=== PATIENT | male | born 1970 | race Caucasian/White ===

== ENCOUNTER 2018-06-27 08:31 | Inpatient (IN) | payer OTHER ==
[~2018-06-27] VITALS: Ht 188 cm; Wt 66.7 kg
--- NOTE | 2018-06-27 18:45 | NUR ---
Intake assessment- Pt presents for medical supervised withdrawal of ETOH. Pt alert and oriented x4, Pt denies being intoxicated. Pt speech clear. Pt is thin and pale. Unshaven and disheveled. Vitals 114/79, HR 109, resp 18, sat 97%, temp 98.2. Pt reports NKA. He has been drinking for 28 years. He drinks 99proof schnapps (99Apples) 600 ml daily for 7 years and 2160ml of beer daily for 7 years.
[2018-06-27] MEDS ORDERED: SRC ALCOHOL WITHDRAWAL ADMITTING PROTOCOL XX PRN (19:00)
[2018-06-27] MEDS ORDERED: diphenhydrAMINE 50 MG CAPSULE PO PRN (19:00)
[2018-06-27] MEDS ORDERED: DIAZEPAM 10 MG TABLET PO PRN (19:00)
[2018-06-27] MEDS ORDERED: MAG HYDROX/AL HYDROX/SIMETH 30 ML LIQUID UDC PO PRN (19:00)
[2018-06-27] MEDS ORDERED: LORAZEPAM 2 MG/1 ML VIAL IM PRN (19:00)
[2018-06-27] MEDS ORDERED: LOPERAMIDE HCL 2 MG CAPSULE PO PRN ×2 (19:00)
[2018-06-27] MEDS ORDERED: MIRALAX 17 GM POWD.PACK PO PRN (19:00)
[2018-06-27] MEDS ORDERED: ACETAMINOPHEN 325 MG TABLET PO PRN (19:00)
[2018-06-27] MEDS ORDERED: DIAZEPAM 5 MG TABLET PO PRN (19:00)
[2018-06-27] MEDS ORDERED: ONDANSETRON 4 MG/2 ML VIAL IM PRN (19:00)
[2018-06-27] MEDS ORDERED: MAGNESIUM HYDROXIDE 30 ML LIQUID UDC PO PRN (19:00)
--- NOTE | 2018-06-27 19:30 | NUR ---
Admission note Patient is a 47 year old male admitted on 06/27/18 at 1854, for medically supervised ETOH withdrawal. Pt is AOx4 and is ambulatory with steady gait. Pt is noted to be anxious, worried, flat affect and withdrawn. Pt denies being intoxicated. Pt reports his typical withdrawal symptoms consist of chills, sweats and tremors. Pt is currently presenting with nausea with no emesis present and anxiety. Pt's initial CIWA was 5. Pt has medical hx of HTN and catheterized polyps on Jun 2018. Pt did not bring any home meds; pt admits taking Advil pm for sleep, vitamin B12 and folic acid supplements daily. Patient has NKA and is full code. Pt follows a regular diet at home. Pt denies withdrawal induced delirium, seizure, cardiac complications, overdoses, and blackouts. Pt stated he smokes 5 cigarettes daily for 20 years, and he also smoke marijuana. Pt denies being in a 5150 in thats past. Pt also reports his mother was an alcoholic. Pt's support system is his kids and friends. Pt reports he is currently lives alone at home. Pt is employed at a [employer]. Pts highest level of education is a high school diploma. Pt stated his longest sobriety was 10 months 25 years ago. Pt denies being under the care of a psychiatrist at the moment. Pt states he does have a PCP but does not remember the name. Pt was hospitalized within the last 30 days, MRSA was collected. Substance abuse 1) ETOH: Pt reports drinking Vodka 600 ml and a 6 pack of beer 360ml (2160 ml) daily for 7 years. Pt last used on 06/27/18, vodka 200 ml and beer 360ml at 1100. Pt started drink when he was 16 years old. 2) Marijuana: Patient states he smokes 0.5 gram daily for the past 2 years. Pt last smoked 0.5 grams on 06/27/18 at 1100. Pt started smoking since he was 12 years old. When asked pt why he wants to get sober he stated: "I want to get sober because I can see its killing me." Patient stated he has faced legal consequences as a result of his drug use. When asked pt why is this admission going to be different he stated: "I plan in going to a treatment center." Pt is in treatment for the first time and denies attending any AA meeting. Pt does not have a sponsor. Pt did not bring any home meds. Pt stated he also continues to drink because he is afraid of the withdrawal symptoms and therefore he continues drinking, he added I know its a lame excuse. Pt also reported he has lost a lot of weight within the last two weeks, about 10 lbs. Pt is 60 and weights 147 lbs per standing scale. Pt's skin is intact, and warm to touch. Capillary refill is <3 seconds. PERRLA is present with pupils 3 mm bilaterally. Lungs are cleared to auscultate bilaterally. Abdomen is soft and non-distended and bowel sounds are present in all four quadrants. Pt' last bowel movement was 06/20/18. Initial vital signs: BP 114/79, P 109, RR 18, Temp 98.2, and O2 97% on RA. Patient denies any pain. Breathing is even and unlabored with no s/s of distress. Pt was provided with instructions regarding unit policies and rules. He provided urine at intake office and blood sample was taken at unit. Fall and seizure precautions are in place, side rails are padded. Safety measures in place, bed locked in low position, side rails up x2, and call light within reach. Will continue to monitor. Addendum: 06/28/18 at 0543 by AMARILIS LUDWIG RN Pt also reported he felt 2 weeks ago and hit himself on his left leg, visible bruise on left thigh and ankle with no open lesion. Photos were not taken.
[2018-06-27 19:52] LABS: *AMPHETAMINE, URINE NEGATIVE (NEGATIVE); *BARBITURATE, URINE NEGATIVE (NEGATIVE); *CANNABINOID, URINE POSITIVE (NEGATIVE); *COCCAINE, URINE NEGATIVE (NEGATIVE); *OPIATE, URINE NEGATIVE (NEGATIVE); *PHENCYCLIDINE SCREEN,URINE NEGATIVE (NEGATIVE)
[2018-06-27] MEDS: ONDANSETRON ODT 4 MG TAB.RAPDIS SL PRN (20:12)
--- NOTE | 2018-06-27 20:12 | NUR ---
PRN Zofran and Benadryl pt is presenting with nausea with no emesis present and difficulty falling asleep. Administered PRN Zofran SL and Benadryl. Pt tolerated well and will continue to monitor.
[2018-06-27 20:15] VITALS: BP 124/91
--- NOTE | 2018-06-27 20:42 | NUR ---
DAISY MIKE Pt stated that nausea had subside and no emesis was present, medication was noted to be effective. Will continue to monitor. Addendum: 06/28/18 at 0520 by AMARILIS LUDWIG RN Reassessment
[2018-06-27] MEDS ORDERED: THIAMINE HCL 200 MG/2 ML VIAL IM ONE (21:00)
--- NOTE | 2018-06-27 21:12 | NUR ---
PRN Benadryl Reassessment Pt was in bed resting with eyes closed, breathing even and unlabored. Medication noted to be effective and will continue to monitor.
[2018-06-27 21:51] LABS: BASOPHILS % (AUTO) 0.4 % (0.0-2.0); EOSINOPHILS % (AUTO) 0.7 % (0.0-7.0); HEMATOCRIT 37.7 % (36.7-47.1); HEMOGLOBIN 13.4 g/dL (12.5-16.3); LYMPHOCYTES # (AUTO) 0.7 K/uL (20.0-40.0); LYMPHOCYTES % (AUTO) 23.8 % (20.5-51.5); MEAN CORPUSCULAR HEMOGLOBIN 38.2 uug (23.8-33.4); MEAN CORPUSCULAR HGB CONC 36 g/dL (32.5-36.3); MEAN CORPUSCULAR VOLUME 107.6 fL (73.0-96.2); MONOCYTES # (AUTO) 0.3 K/uL (2.0-10.0); MONOCYTES % (AUTO) 11.4 % (0.0-11.0); NEUTROPHILS # (AUTO) 1.8 K/uL (1.8-8.9); NEUTROPHILS % (AUTO) 63.7 % (38.5-71.5); PLATELET COUNT (AUTO) 71 K/uL (152-348); WHITE BLOOD COUNT (AUTO) 2.8 K/uL (3.6-10.2)
[2018-06-27 22:04] LABS: BILIRUBIN,TOTAL 1.5 mg/dL (0.2-1.0); CREATININE 0.9 mg/dL (0.6-1.3); MAGNESIUM 1.7 mg/dL (1.8-2.4); POTASSIUM 3.3 mmol/L (3.5-5.1); TOTAL PROTEIN, SERUM 6.6 g/dL (6.4-8.2)
[2018-06-27 22:15] LABS: THYROID STIMULATING HORMONE 1.506 mIU/mL (0.358-3.740)
[2018-06-27 22:17] LABS: LYMPHOCYTES % (MANUAL) 29 % (20-40); MONOCYTES % (MANUAL) 10 % (2-10); NEUTROPHILS % (MANUAL) 61 % (42-75)
[2018-06-28] VITALS: BP 110/81
[2018-06-28] MEDS ORDERED: POTASSIUM CHLORIDE 20 MEQ TAB.PRT.SR PO ONE (00:20)
[2018-06-28] MEDS ORDERED: MAGNESIUM OXIDE 400 MG TABLET PO SCH (00:20)
--- NOTE | 2018-06-28 00:20 | NUR ---
Critical lab Value K 3.3 and Mg 1.7 Pt's K lab level is low of 3.3 and Mg is low of 1.7. Replacement was ordered and administered K-tg 40 MEQ and mag ox 400mg. Pt tolerated well and will continue to monitor pt. Safety measures in place.
[2018-06-28] MEDS: HYDROXYZINE PAMOATE 25 MG CAPSULE PO PRN (00:28)
[2018-06-28] MEDS: DIAZEPAM 10 MG TABLET PO PRN ×2 (00:28→08:16)
--- NOTE | 2018-06-28 00:28 | NUR ---
PRN Valium and Vistaril Pt was presenting with chills, anxiety, agitation and mild sweats. Administered PRN Valium and Vistaril, pt tolerated well and will continue to monitor. Addendum: 06/28/18 at 0523 by AMARILIS LUDWIG RN CATARINA was 11.
--- NOTE | 2018-06-28 01:28 | NUR ---
PRN Valium and Vistaril Reassessment Pt was noted in bed with eyes closed, with lights off. Pt is breathing even and unlabored, medication noted to be effective. Safety measure sin place and will continue to monitor.
--- NOTE | 2018-06-28 07:17 | NUR ---
End of shift note Pt was admitted on 06/27/18 for medically supervised ETOH withdrawal. Pt is on fall and seizure precautions. Pts last CIWA was 11. Pt is on PRNs, pending taper orders. Pt had PRN Zofran, Benadryl, Valium, and Vistaril during this shift. Pt had K and Mg replaced during this shift. MRSA swab was collected. Pt refused any medication for constipation at this moment. Pt was complaint with plan of care. Pt is presenting with anxiety, agitation, chills, sweats, and a runny nose. Pt slept for 7 hours and had a total of 1,000 ml. Pt voided x 3 and had no bowel movements during this shift. Safety measures in place, bed locked in low position, side rails up x2, and call light within reach. Will endorse to day shift.
[2018-06-28 08:00] VITALS: BP 121/79
--- NOTE | 2018-06-28 08:15 | NUR ---
START OF SHIFT: Received Pt A/O X 4. he presents with guarded affect and anxious mood. Tremors noted to BUE. He is fidgety. He reports restlessness,anxiety,intermittent sweats and R shoulder pain 6/10 on pain scale. PRN Valium 10 mg PO given for CIWA 15 and PRN Motrin given to manage pain. Encouraged increased fluids and rest today. Will continue to monitor and manage s/s of w/d. Call galicia in reach. Bed low and locked.
[2018-06-28] MEDS: MULTIVITAMINS,THERAPEUTIC TABLET PO SCH (08:16)
[2018-06-28] MEDS: IBUPROFEN 600 MG TABLET PO PRN (08:16)
[2018-06-28] MEDS: FOLIC ACID 1 MG TABLET PO SCH (08:16)
[2018-06-28] MEDS: THIAMINE HCL 100 MG TABLET PO SCH (08:16)
[2018-06-28] MEDS ORDERED: TUBERCULIN,PURIF.PROT.DERIV. 5 TU/0.1 ML TEST ID ONE (09:00)
--- NOTE | 2018-06-28 09:15 | NUR ---
Bertha VILLA effective aeb CIWA 12. Will continue to monitor Addendum: 06/28/18 at 1230 by AMISH MARSH RN Motrin effective R shoulder pain 08/16 on scale
[2018-06-28 12:00] VITALS: BP 119/91
[2018-06-28] MEDS ORDERED: 5 DAY TAPER VALIUM-SERENITY PROTOCOL PO PRN (13:00)
[2018-06-28] MEDS: DIAZEPAM 10 MG TABLET PO SCH ×3 (13:27→20:31)
[2018-06-28 16:00] VITALS: BP 117/90
--- NOTE | 2018-06-28 18:40 | NUR ---
END OF SHIFT: Pt started Valium taper today to manage s/s of w/d which include anxiety,tremors,sweats,restlessness and irritability. Last CIWA 12. He was given PRN Valium in the morning prior to taper starting ind it was effective. He was compliant with increased fluids and spent most of shift laying in bed as encouraged. Will pass shift report to oncoming night nurse.
--- NOTE | 2018-06-28 19:30 | NUR ---
START OF SHIFT Received patient awake, alert, oriented x4 sitting up in bed watching TV. Patient is a 47 year old male admitted for medically supervised withdrawal from ETOH with a secondary diagnosis of HTN. Per endorsement, patient presented with tremors, discomfort, anxiety, and restlessness during the shift and Valium PRN was given as well as scheduled taper meds. This is his first time in treatment and per AM nurse, he is compliant with care. Upon assessment, patient reports fatigue, nausea, tremors, and anxiety and requests PRNs with scheduled night meds. Last CIWA score is 12. Call light is functional and within reach. Bed is in a low position with wheels locked. All safety measures in place. Will continue to monitor.
[2018-06-28 20:05] VITALS: BP 145/91
[2018-06-28] MEDS: TRAZODONE 50 MG TABLET PO PRN (20:30)
[2018-06-28] MEDS: ONDANSETRON ODT 4 MG TAB.RAPDIS SL PRN (20:31)
--- NOTE | 2018-06-28 20:31 | NUR ---
PRN ZOFRAN AND TRAZODONE ADMINISTRATION Patient reported having nausea and difficulty sleeping. PRN meds Zofran 4 mg SL and Trazodone 50 mg PO given per MD orders and patient request. Will reassess for effectiveness.
--- NOTE | 2018-06-28 21:31 | NUR ---
PRN ZOFRAN AND TRAZODONE REASSESSMENT Patient is noted lying in bed with eyes closed and even, unlabored respirations. No reports of nausea noted at this time. PRN meds Zofran and Trazodone noted to be effective. Will continue to monitor.
--- NOTE | 2018-06-29 00:03 | NUR ---
VITAL SIGNS REFUSED Patient is noted lying in bed with eyes closed and even, unlabored respirations. Vital sign assessment refused. HOB flat and bilateral side rails raised. Call light within reach. Will continue to monitor.
--- NOTE | 2018-06-29 07:06 | NUR ---
END OF SHIFT Patient reported having difficulty sleeping, anxiety, and nausea during the shift. PRN meds zofran and Trazodone given and were effective. Patient remained compliant with therapeutic program. He slept for about 6 hours during the night. Last CIWA score was 13 taken at 1999. HOB and bilateral side rails raised. Fall and safety precautions maintained. Endorsed to oncoming AM nurse.
--- NOTE | 2018-06-29 07:50 | NUR ---
STAT OF SHIFT Received report from night nurse, 47 year male admitted for ETOH Withdrawal. Patient continues on 5 day Valium taper tolerating well. Per endorsement patient received PRN Zofran,Trazodone, slept for 6 hours, last CIWA-. Received patient alert awake oriented x4, patient presented with flat facial expression, anxious, agitated, bilateral hand tremors, numbness on bilateral lower extremities. Patient is due for schedule medications. Patient educated on current plan of the day and medications regime, patient verbalized understanding. All safety measures in place. Will cont to monitor.
[2018-06-29 08:00] VITALS: BP 120/90
[2018-06-29] MEDS: FOLIC ACID 1 MG TABLET PO SCH (08:24)
[2018-06-29] MEDS: THIAMINE HCL 100 MG TABLET PO SCH (08:24)
[2018-06-29] MEDS: DIAZEPAM 5 MG TABLET PO SCH ×4 (08:24→21:00)
[2018-06-29] MEDS: MULTIVITAMINS,THERAPEUTIC TABLET PO SCH (08:24)
[2018-06-29 09:27] LABS: BILIRUBIN,TOTAL 3.1 mg/dL (0.2-1.0); CREATININE 0.9 mg/dL (0.6-1.3); MAGNESIUM 1.6 mg/dL (1.8-2.4); POTASSIUM 4.2 mmol/L (3.5-5.1)
[2018-06-29 09:46] LABS: BASOPHILS % (AUTO) 0.7 % (0.0-2.0); EOSINOPHILS # (AUTO) 0.1 K/uL (0.0-0.7); EOSINOPHILS % (AUTO) 1.8 % (0.0-7.0); LYMPHOCYTES % (AUTO) 32.4 % (20.5-51.5); MEAN CORPUSCULAR HGB CONC 36 g/dL (32.5-36.3); MONOCYTES # (AUTO) 0.4 K/uL (2.0-10.0); MONOCYTES % (AUTO) 12.1 % (0.0-11.0); NEUTROPHILS # (AUTO) 1.7 K/uL (1.8-8.9); RED BLOOD CELL COUNT(AUTO) 3.58 MIL/uL (4.06-5.63); WHITE BLOOD COUNT (AUTO) 3.1 K/uL (3.6-10.2)
[2018-06-29 10:09] LABS: HEPATITIS B SURFACE AG Negative (Negative)
[2018-06-29 10:13] LABS: HEMATOCRIT 38.1 % (36.7-47.1); HEMOGLOBIN 13.8 g/dL (12.5-16.3)
[2018-06-29 10:14] LABS: MEAN CORPUSCULAR HEMOGLOBIN 38.6 uug (23.8-33.4); MEAN CORPUSCULAR VOLUME 106.5 fL (73.0-96.2); PLATELET COUNT (AUTO) 79 K/uL (152-348)
[2018-06-29] MEDS ORDERED: MAGNESIUM OXIDE 400 MG TABLET PO ONE (11:30)
[2018-06-29 12:00] VITALS: BP 130/91
[2018-06-29 12:22] LABS: BASOPHILS % (MANUAL) 1 % (0-2); EOSINOPHILS % (MANUAL) 1 % (0-8); LYMPHOCYTES % (MANUAL) 34 % (20-40); NEUTROPHILS % (MANUAL) 53 % (42-75)
[2018-06-29 12:31] LABS: MONOCYTES % (MANUAL) 9 % (2-10)
[2018-06-29 12:32] LABS: REACTIVE LYMPHOCYTES 2 % (0-0)
--- NOTE | 2018-06-29 12:41 | NUR ---
Therapist prompted client to attend group therapy.
[2018-06-29 16:00] VITALS: BP 122/93
[2018-06-29] MEDS ORDERED: DIAZEPAM 10 MG TABLET PO ONE (18:15)
--- NOTE | 2018-06-29 18:23 | NUR ---
ONE TIME VALIUM Patient reported increased in anxiety, agitation, restless, fatigue, bilateral hand tremors, sweats, CIWA score noted 15. notified. New order to give Valium 10mg PO, medication administered as ordered. All safety measures in place. Will cont to monitor and reassess for effectiveness. Addendum: 06/29/18 at 1842 by ANDREW CORADO LVN Patient's HR noted 129.
--- NOTE | 2018-06-29 19:07 | NUR ---
END OF SHIFT Patient is alert awake oriented x4 patient is a 47 year old male admitted for ETOH withdrawals and continues Valium taper tolerating well. Patient received did not receive any PRN. Patient was given his scheduled medications tolerated well. Patient encouraged to participate in therapy sessions. Patient educated in medication regimen. Encouraged patient to socialized with others. Patient verbalized understanding. Encourage PO fluids as tolerated. Last CIWA score 12 at 1600. Patient magnesium level was low 1.6L which was replaced it with 800mag- ox PO as ordered. Patient tolerated well. Vital signs WNL. Patient denies any SI/HI. Patient was given one time dose of Valium 10mg PO for increased anxiety, endorse to night nurse to reassess the patient. All safety measures in place. Patient endorsed to night nurse in stable condition.
--- NOTE | 2018-06-29 19:30 | NUR ---
START OF SHIFT Pt is a 47 y/o male admitted on 06/27/18 for medically supervised withdrawal from ETOH. Pt is on a 5 day Valium taper, tolerating well. Last CIWA 15 and no PRNs administered during day shift. Mg replaced. One time order for Valium 10 mg administered at 1823. Upon assessment pt presents with anxiety, agitation, restlessness, tremors, sweats, lethargy, chills, disheveled appearance, poor eye contact, and unkempt room. Pt also complains of occasional dizziness. Medications due. Safety measures in place. Call light within reach. Will continue to monitor.
[2018-06-29 20:00] VITALS: BP 120/94
--- NOTE | 2018-06-29 21:00 | NUR ---
NON ADMIN SCHEDULED VALIUM 5 MG Pt fell asleep through medication administration time. Pt stated before he slept, "I feel like I might be ok because I got that extra Valium 10 mg not too long ago...I feel less anxious and I feel tired." Education about risks/benefits given. Pt understood.
--- NOTE | 2018-06-30 | NUR ---
VITALS REFUSED Pt laying in bed with eyes closed, vitals refused before patient fell asleep and stated, "I don't want anyone knocking on my door or anything tonight." Respirations even and unlabored. Safety measures in place. Call light within reach. Will continue to monitor.
--- NOTE | 2018-06-30 04:00 | NUR ---
VITALS REFUSED Pt laying in bed with eyes closed, vitals refused. Respirations even and unlabored. Safety measures in place. Call light within reach. Will continue to monitor.
--- NOTE | 2018-06-30 07:13 | NUR ---
END OF SHIFT Pt is a 47 y/o male admitted on 06/27/18 for medically supervised withdrawal from ETOH. Pt is on a 5 day Valium taper, tolerating well. Pt presented with anxiety, agitation, restlessness, tremors, sweats, chills, disheveled appearance, poor eye contact, and unkempt room. Scheduled Valium 5 mg non-administered d/t pt sedation. No PRNs administered. Last CIWA 9. Pt slept 9 hours. Intake 595 ml, void x 2, stool x 1. Safety measures in place. Call light within reach. Pts needs have been met. Endorsed to day shift nurse.
--- NOTE | 2018-06-30 08:10 | NUR ---
START OF SHIFT: Received Pt A/O X 4. he presents with guarded affect and anxious mood. Fine tremors noted to hands. He is fidgety. He reports anxiety,restlessness,back pain 5/10 on scale and intermittent sweats. Valium taper in progress to manage s/s of w/d. CIWA 9 PRN Motrin given to manage pain. Encouraged increased fluids to facilitate detox process. Encouraged group attendance to improve coping skills and prevent relapse. Will continue to monitor and manage s/s of w/d.
[2018-06-30 08:11] VITALS: BP 134/99
[2018-06-30] MEDS: IBUPROFEN 600 MG TABLET PO PRN (08:48)
[2018-06-30] MEDS: MULTIVITAMINS,THERAPEUTIC TABLET PO SCH (08:48)
[2018-06-30] MEDS: THIAMINE HCL 100 MG TABLET PO SCH (08:48)
[2018-06-30] MEDS: DIAZEPAM 5 MG TABLET PO SCH ×3 (08:48→20:50)
[2018-06-30] MEDS: FOLIC ACID 1 MG TABLET PO SCH (08:48)
[2018-06-30 09:07] LABS: CREATININE 0.8 mg/dL (0.6-1.3); MAGNESIUM 1.9 mg/dL (1.8-2.4); POTASSIUM 4.1 mmol/L (3.5-5.1)
[2018-06-30 12:00] VITALS: BP 147/107
--- NOTE | 2018-06-30 13:17 | NUR ---
Therapist prompted client to attend all group therapy sessions.
[2018-06-30] MEDS: CLONIDINE HCL 0.1 MG TABLET PO PRN (13:20)
--- NOTE | 2018-06-30 13:20 | NUR ---
PRN Clonidine 0.1 mg PO given for BP 147/107 P 90. He is asymptomatic. Will monitor effectiveness of PRN medication.
[2018-06-30 14:00] VITALS: BP 116/88
[2018-06-30 16:00] VITALS: BP 111/83
--- NOTE | 2018-06-30 18:56 | NUR ---
END OF SHIFT: Pt continues on Valium taper today to manage s/s of w/d which include anxiety,fine tremors and restlessness.. Last CIWA 9. He was compliant with increased fluids and attended groups. UA collected and sent to lab. for reported blood in urine Will pass shift report [facility]. Addendum: 06/30/18 at 1940 by AMISH MARSH RN ERROR: UA not collected and sent to lab as urine amount was too small
--- NOTE | 2018-06-30 19:35 | NUR ---
START OF SHIFT NOTE Rcvd report from outgoing nurse. Pt is a 47 y/o male A/O to person, place, time, and purpose. Pt was admitted for medically supervised withdrawal from ETOH. Pt is on day 3 of a 5 day Valium taper. Pt has been presenting w/ nausea w/ no emesis, sweats, body aches, restlessness, fine tremors, anxiety, depressed mood, and flat affect. Pt rcvd PRN Motrin and was noted effective by outgoing nurse. Last CIWA 9 @ 1600. Call light is within reach. Pt will continue to be monitored and needs met.
[2018-06-30 20:00] VITALS: BP 111/85
[2018-06-30] MEDS: ONDANSETRON ODT 4 MG TAB.RAPDIS SL PRN (20:50)
--- NOTE | 2018-06-30 20:50 | NUR ---
PRN TRAZODONE AND ZOFRAN ADMINISTRATION Trazodone 50mg for agitation/sleep and Zofran 4mg for nausea were given. Will reassess pt in 1hr.
[2018-06-30] MEDS: TRAZODONE 50 MG TABLET PO PRN (20:51)
--- NOTE | 2018-06-30 21:50 | NUR ---
PRN TRAZODONE AND ZOFRAN REASSESSMENT Pt is in bed w/ his eyes closed. Pt's respirations are unlabored and even.
[2018-06-30 21:54] LABS: *BILIRUBIN,URIN 1+ (NEGATIVE); *BLOOD, URINE NEGATIVE (NEGATIVE); *CLARITY,URINE CLEAR (CLEAR); *COLOR,URINE DARK YELLOW (YELLOW); *KETONES,URINE 1+ (NEGATIVE); LEUKOCYTE ESTERASE ,URINE NEGATIVE (NEGATIVE); NITRITE, URINE NEGATIVE (NEGATIVE); UGLUCOSE NEGATIVE (NEGATIVE)
[2018-06-30 22:11] LABS: BACTERIA,URINE NONE SEEN /HPF (NONE SEEN); RBC,URINE 0-3 /HPF (0-3); SQUAMOUS EPITHELIAL CELL,UR FEW /HPF (NONE SEEN); WBC,URINE 0-3 /HPF (0-3)
--- NOTE | 2018-07-01 | NUR ---
CIWA DEFERRED. V/S REFUSED Pt is in bed w/ his eyes closed. Pt's respirations are unlabored and even.
--- NOTE | 2018-07-01 04:00 | NUR ---
CIWA DEFERRED. V/S REFUSED Pt is in bed w/ his eyes closed. Pt's respirations are unlabored and even.
--- NOTE | 2018-07-01 07:24 | NUR ---
END OF SHIFT NOTE Endorsed pt to oncoming nurse. Pt is a 47 y/o male A/O to person, place, time, and purpose. Pt was admitted for medically supervised withdrawal from ETOH. Pt completed day 3 of a 5 day Valium taper. Pt continued presenting w/ nausea w/ no emesis, sweats, body aches, restlessness, fine tremors, anxiety, depressed mood, and flat affect. Pt denies any S/I or H/I. PRN Trazodone and Zofran were given and noted effective. Pt denies any S/I or H/I. PRN Zofran and Trazodone were given and noted effective. Pts fluid intake was 1000ml and he slept for 7hrs. Last CIWA 9 @ 2200. Call light is within reach.
--- NOTE | 2018-07-01 07:30 | NUR ---
START OF SHIFT Pt 47 y/o male admitted for etoh withdrawal. Pt received in room awake watching television. Pt alert and oriented to name, place, and time. Perrla. Skin warm and moist touch. Respirations even and unlabored. Appears disheveled. Empty food wrappings scattered throughout the room. Encouraged to maintain hygiene. Anxious and restless. Pressured speech. Bilateral hand tremors noted. Fidgety. Foot tapping. It was reported that pt slept for 7 hours last night. Pt is on a 5 day valium taper and is on day 4. Bed on lowest position with side rails x2 up for safety. Call light within reach.
[2018-07-01 08:00] VITALS: BP 129/80
[2018-07-01 08:18] LABS: BILIRUBIN,TOTAL 1.2 mg/dL (0.2-1.0); CREATININE 0.9 mg/dL (0.6-1.3); POTASSIUM 4.1 mmol/L (3.5-5.1)
[2018-07-01 08:19] LABS: MAGNESIUM 1.9 mg/dL (1.8-2.4); TOTAL PROTEIN, SERUM 7.4 g/dL (6.4-8.2)
[2018-07-01] MEDS: MULTIVITAMINS,THERAPEUTIC TABLET PO SCH (08:39)
[2018-07-01] MEDS: FOLIC ACID 1 MG TABLET PO SCH (08:39)
[2018-07-01] MEDS: DIAZEPAM 5 MG TABLET PO SCH ×2 (08:39→20:27)
[2018-07-01] MEDS: THIAMINE HCL 100 MG TABLET PO SCH (08:39)
[2018-07-01 12:00] VITALS: BP 136/98
--- NOTE | 2018-07-01 13:38 | NUR ---
Therapist prompted client to attend group therapy sessions daily.
[2018-07-01] MEDS: HYDROXYZINE PAMOATE 25 MG CAPSULE PO PRN (15:20)
--- NOTE | 2018-07-01 15:24 | NUR ---
PRN VISTARIL Pt anxious and restless. Vistaril po prn per MD order given.
[2018-07-01 16:00] VITALS: BP 136/102
--- NOTE | 2018-07-01 16:24 | NUR ---
PRN VISTARIL EVAL Pt states medication not effective.
[2018-07-01] MEDS: CLONIDINE HCL 0.1 MG TABLET PO PRN (16:41)
--- NOTE | 2018-07-01 16:42 | NUR ---
PRN CATAPRES Anxious and restless. me=264/102. Catapres po prn per MD order given.
--- NOTE | 2018-07-01 17:42 | NUR ---
PRN CATAPRES EVAL Pt states medications effective. bp= 128/88
--- NOTE | 2018-07-01 19:08 | NUR ---
END OF SHIFT Pt 47 y/o male admitted for etoh withdrawal. Pt alert and oriented to name, place, and time. Perrla. Skin warm and moist to touch. Respirations even and unlabored. Appears disheveled and unkempt. Dirt under finger nails of both hands noted. Clothes scattered throughout the room. Encouraged to maintain hygiene. Anxious and restless. Pressured speech. Bilateral hand tremors noted. Complaints of generalized discomfort. Last ciwa= 11@ 1600. Pt attended group activity. Pt is on a 5 day valium taper and is on day 4. Bed on lowest position with side rails x2 up for safety. Call light within reach.
--- NOTE | 2018-07-01 19:30 | NUR ---
START OF SHIFT Pt is a 47 y/o male admitted on 06/27/17 for ETOH withdrawal. Pt is on a 5 day Valium taper that started on 06/28/18, tolerating well. Last CIWA 11 and PRN Clonidine and Vistaril administered during day shift. Upon assessment pt presents with anxiety, agitation, restlessness, tremors, sweats, numbness in feet, difficulty falling and staying asleep, and unkempt room. Medications due. Safety measures in place. Call light within reach. Will continue to monitor.
[2018-07-01 20:00] VITALS: BP 118/86
[2018-07-01] MEDS: TRAZODONE 50 MG TABLET PO PRN (20:27)
--- NOTE | 2018-07-01 20:27 | NUR ---
PRN TRAZODONE ADMINISTRATION Pt requests Trazodone for sleep aid. Safety measures in place. Call light within reach. Will continue to monitor.
--- NOTE | 2018-07-01 21:27 | NUR ---
PRN TRAZODONE REASSESSMENT Pt laying in bed with eyes closed, medication noted effective. Respirations even and unlabored. Safety measures in place. Call light within reach. Will continue to monitor.
--- NOTE | 2018-07-02 | NUR ---
VITALS REFUSED Pt laying in bed with eyes closed. Vitals refused. Respirations even and unlabored. Safety measures in place. Call light within reach. Will continue to monitor.
--- NOTE | 2018-07-02 07:09 | NUR ---
END OF SHIFT Pt is a 47 y/o male admitted on 06/27/17 for ETOH withdrawal. Pt is on a 5 day Valium taper that started on 06/28/18, tolerating well. Pt presented with anxiety, agitation, restlessness, tremors, sweats, numbness in feet, difficulty falling and staying asleep, and unkempt room. Scheduled medications and PRN Trazodone administered, effective in S/S of withdrawal AEB CIWA 11 lowered to CIWA 10 during shift. Pt slept 9 hours. Intake 586 ml, void x 1, stool x 0. Safety measures in place. Call light within reach. Pts needs have been met. Endorsed to day shift nurse.
--- NOTE | 2018-07-02 07:30 | NUR ---
START OF SHIFT Pt 47 y/o male admitted for etoh withdrawal. Pt received in room awake watching television. Pt alert and oriented to name, place, and time. Perrla. Skin warm to touch. Respirations even and unlabored. Appears disheveled. Hair uncombed. Clothes scattered throughout the room. Encouraged to maintain hygiene. Anxious and restless. Pressured speech. Bilateral hand tremors.Complaints of generalized discomfort. It was reported that pt slept for 9 hours last night. Pt is on a 5 day valium taper and is on day 5. Bed on lowest position with side rails x2 up for safety. Call light within reach.
[2018-07-02 08:00] VITALS: BP 133/97
[2018-07-02] MEDS: THIAMINE HCL 100 MG TABLET PO SCH (08:11)
[2018-07-02] MEDS: IBUPROFEN 600 MG TABLET PO PRN ×2 (08:11→15:27)
[2018-07-02] MEDS: MULTIVITAMINS,THERAPEUTIC TABLET PO SCH (08:11)
[2018-07-02] MEDS: FOLIC ACID 1 MG TABLET PO SCH (08:11)
--- NOTE | 2018-07-02 08:22 | NUR ---
PRN MOTRIN Complaints of pain 11/16. Motrin po prn per MD order given.
[2018-07-02] MEDS ORDERED: DIAZEPAM 5 MG TABLET PO SCH (09:00)
--- NOTE | 2018-07-02 09:22 | NUR ---
PRN MARY VALDEZ Pt states medication effective and pain is 3/10.
[2018-07-02 12:00] VITALS: BP 122/88
[2018-07-02] MEDS ORDERED: TRAZ-213 PO (12:58)
[2018-07-02] MEDS ORDERED: HYDR-3895 PO (12:58)
[2018-07-02] MEDS ORDERED: THIA100T13 PO (12:58)
[2018-07-02] MEDS ORDERED: FOLI1TAB16 PO (12:58)
[2018-07-02] MEDS ORDERED: IBUP-1955 PO (12:58)
[2018-07-02] MEDS ORDERED: CLON0.1T14 PO (12:58)
[2018-07-02] MEDS: HYDROXYZINE PAMOATE 25 MG CAPSULE PO PRN ×3 (15:26→21:36)
[2018-07-02] MEDS: CLONIDINE HCL 0.1 MG TABLET PO PRN ×3 (15:27→21:36)
--- NOTE | 2018-07-02 15:37 | NUR ---
PRN MOTRIN CATAPRES VISTARIL Complaints of pain 11/16. Motrin po prn per MD order given. Anxious and restless. Pacing in room. Pressured speech. Catapres po prn per MD order given. Vistaril po prn per MD order given.
[2018-07-02 16:00] VITALS: BP 117/82
--- NOTE | 2018-07-02 18:55 | NUR ---
END OF SHFIT Pt 47 y/o male admitted for etoh withdrawal. Pt alert and oriented to name, place, and time. Perrla. Skin warm and moist to touch. Respirations even and unlabored. Appears disheveled. Clothes scattered throughout the room. Encouraged to maintain hygiene. Anxious and restless. Pressured speech. Bilateral hand tremors noted. Last ciwa= 6 @ 1600. Pt selective with group activity. Pt is on a 5 day valium taper and is on day 5. Pt is scheduled to be discharged tomorrow. Bed on lowest position with side rails x2 up for safety. Call light within reach.
--- NOTE | 2018-07-02 19:30 | NUR ---
Start of Shift Patient Received. Per endorsement, patient 47 year old male who has completed a 5 day Valium taper and he is set for discharge tomorrow morning to [facility]. Patient was given PRN Clonidine, Vistaril, and Motrin with medication noted to be effective. Last noted CIWA 6. Patient was noted to be compliant with group and social activities. Upon rounds, patient was noted awake, alert and verbally responsive. Breathing even and non labored. No signs of pain or discomfort noted. Patient continues to be monitored for increased signs and symptoms of anxiety, agitation, restlessness, chills, sweats, and insomnia. Patient was noted to verbalize need for sleep aid prior to bedtime. He is also noted to verbalize "when I go to sleep tonight I would like for my door to remain shut. I have difficulty sleeping. Once I'm awakened then its really hard for me to fall back to sleep." Explained to patient of MD and unit protocols. Patient verbalized understanding and is refusing vital and states "I'm ok with the rounding but no vitals." Patient is noted to join peers for smoking breaking. All needs attended to promptly. Will continue plan of care as ordered.
[2018-07-02 20:00] VITALS: BP 112/87
[2018-07-02] MEDS: TRAZODONE 50 MG TABLET PO PRN (20:38)
--- NOTE | 2018-07-02 20:40 | NUR ---
PRN Medication Administration Patient is noted verbalizing inability of falling asleep. PRN Trazodone administered. Patient states "I'll try this first." Will continue to monitor.
--- NOTE | 2018-07-02 21:40 | NUR ---
PRN Medication Reassessment/PRN Medication Administration Patient is noted in bed awake and stated "Im just really nervous about tomorrow. I have a lot of anxiety." Patient is noted to verbalize increased anxiety and increased sweats. PRN trazodone noted not effective. PRN Clonidine and Vistaril administered. Will continue to monitor.
--- NOTE | 2018-07-02 22:42 | NUR ---
PRN Medication Reassessment Patient is noted in bed with eyes closed. Breathing even and non labored. No signs of restlessness or facial grimacing noted. PRN Clonidine and Vistaril noted to be effective. Will continue to monitor.
--- NOTE | 2018-07-03 00:34 | NUR ---
CIWA and Vitals Patient is noted in bed with eyes closed. Breathing even and non labored. No signs of restlessness or facial grimacing noted. Patient refused vitals. CIWA not able to be completed as per order. Will continue to monitor.
[2018-07-03 04:10] VITALS: BP 117/72
--- NOTE | 2018-07-03 07:00 | NUR ---
End of Shift Patient is noted awake, alert and verbally responsive. Breathing even and non labored. Patient is noted to deny any increased and symptoms of withdrawals. Patient is a 47 year old male that has completed a 5 day Valium taper and is set for discharge today 07/03/18 to [facility]. Patient received PRN Clonidine, Vistaril, and Trazodone with medications noted to be effective. Patient noted to sleep a total of 8 hours. Last noted CIWA 8. Patient is noted to be flat, with depressed worried affect. Speech is loud and pressured. He is noted to be tense, hyperactive, and restless. Patient continues to be monitored for increased anxiety, agitation, restlessness, chills, sweats, racing thoughts, and insomnia. Patient was noted to be compliant with group and social activities. All needs attended to promptly. Will endorse to continue plan of care as ordered.
--- NOTE | 2018-07-03 07:28 | NUR ---
Start of Shift Notes: Received endorsement from night nurse. Patient is a 47 year old male admitted for ETOH withdrawal who completed his 5-day Valium taper as ordered. Patient will be discharging today. Per night report, patient was given PRN Trazodone, Clonidine and Vistaril during the night. Slept for 8 hours. Last CIWA 8. Received patient awake, alert and verbally responsive. Oriented x 4. Denies S/I or H/I noted. No AV hallucinations noted. Patient appears flushed, anxious, agitated, and irritable. He is noted with gross tremors to BUE. Educated patient on the discharge process and his medication regimen in the morning. Patient verbalized good understanding. All needs met and attended. Will continue to monitor closely.
[2018-07-03 08:00] VITALS: BP 117/88
[2018-07-03] MEDS: HYDROXYZINE PAMOATE 25 MG CAPSULE PO PRN (08:09)
[2018-07-03] MEDS: MULTIVITAMINS,THERAPEUTIC TABLET PO SCH (08:09)
[2018-07-03] MEDS: FOLIC ACID 1 MG TABLET PO SCH (08:09)
[2018-07-03] MEDS: THIAMINE HCL 100 MG TABLET PO SCH (08:09)
--- NOTE | 2018-07-03 08:09 | NUR ---
Vistaril 50 mg PO given: Patient noted to be hyperverbal, gross tremors noted and complains of anxiety due to the discharge process. Non-pharmacological interventions provided but ineffective. Medicated patient with Vistaril 50 mg PO as ordered. Will monitor for effectiveness.
--- NOTE | 2018-07-03 09:09 | NUR ---
Re-assessment: Vistaril Patient verbalizes that PRN Vistaril was effective in reducing his anxiety. PRN Vistaril effective.
--- NOTE | 2018-07-03 09:26 | NUR ---
Discharged: Patient education provided regarding his discharge instructions. Patient verbalized good understanding. VSS. Denies S/I or H/i. No AV hallucinations noted. CIWA 9 due to anxiety. All clothing and valuables were returned to the patient. Patient verbalized good understanding of all teachings. Picked up by [employer] at this time. Escorted off the unit safely.
== END 2018-07-03 09:46 | disposition other institution (70) | DRG 895 ==
LOC: SRC 17:53
PROVIDERS: ADMIT Family Medicine Addiction Medicine; ATTEND Family Medicine Addiction Medicine
PROC: HZ2ZZZZ Detoxification Services for Substance Abuse Treatment (ICD-10-PCS; principal; 2018-06-27)
PROC: HZ41ZZZ Group Counseling for Substance Abuse Treatment, Behavioral (ICD-10-PCS; 2018-06-29)
PROC: HZ31ZZZ Individual Counseling for Substance Abuse Treatment, Behavioral (ICD-10-PCS; 2018-06-30)
DX: F10.230 Alcohol dependence with withdrawal, uncomplicated (principal); F12.10 Cannabis abuse, uncomplicated; Y90.6 Blood alcohol level of 120-199 mg/100 ml; Z81.1 Family history of alcohol abuse and dependence; F17.210 Nicotine dependence, cigarettes, uncomplicated; I10 Essential (primary) hypertension; Z86.010 Personal history of colon polyps; E87.6 Hypokalemia; E83.42 Hypomagnesemia; R74.0 Nonspecific elevation of levels of transaminase and lactic acid dehydrogenase [LDH]; F41.9 Anxiety disorder, unspecified; G47.00 Insomnia, unspecified
CPT/HCPCS: 36415; 70030-TC; 80307; 80349; 83690; 83735; 84443; 85025; 86592; 86705; 86803; 87340; 87806; G0480; J3411; Q0162; Q0163